=== PATIENT | male | born 1980 | race Caucasian/White ===

== ENCOUNTER 2016-11-25 08:43 | Emergency (ER) | payer OTHER ==
[2016-11-25 10:12] VITALS: BP 118/84
[2016-11-25] MEDS ORDERED: LIDOCAINE HCL 20 ML UDC MM ONE (10:35)
--- NOTE | 2016-11-25 10:42 | ERNOTE ---
ENT HPI Date of Service: 11/25/16 Time Seen by Provider: 11/25/16 10:01 Source: patient Exam Limitations: no limitations - Immun/Allergies/Home Medications Immunizations: IMMUNIZATION HX Immunizations Up to Date Yes History of Influenza Vaccine No Hx Pneumococcal Vaccination No Allergies/Adverse Reactions: Allergies Allergy/AdvReac Type Severity Reaction Status Date / Time No Known Allergies Allergy Verified 11/01/16 09:35 Home Medications: HOME MEDICATIONS Levothyroxine Sodium [Synthroid] 200 mcg PO DAILY 05/19/15 [Last Taken 10/31/16 08:00] Calcium Carb & Citrate/Vit D3 [Citracal + D ER Tablet] 2 each PO BID 10/14/15 [ Last Taken 10/31/16 08:00] HYDROcodone/ACETAMINOPHEN [[place] 5-325] 1 tab PO Q4H PRN #10 tab 10/31/16 [Last Taken 10/28/16 08:00] HYDROcodone/ACETAMINOPHEN [[place] 5-325] 1 - 2 tab PO Q4H PRN #60 tab 11/01/16 [ Last Taken Unknown] Amox Tr/Potassium Clavulanate [Augmentin 875-125 Tablet] 875 mg PO Q12H #20 tab 11/25/16 [Last Taken Unknown] - History of Present Illness Narrative: Pt. comes in with c/o sore throat for 12 hours that was accompanied by fever but denies and sinus congestion, cough, rhinorrhea, NVD, CP, SOB. Pt. states taht swallowing exacerbates the pain but nothing alleviates the pain. Pt. took vicodin prior to arrival and it did alleviate the fever though. Review of Systems - Review of Systems Constitutional: Present: fever, chills. Absent: weakness, fatigue, malaise EYE: Present: no symptoms reported ENT: Present: sore throat. Absent: ear pain, nose pain, nose congestion, nasal drainage Respiratory: Present: no symptoms reported. Absent: shortness of breath, cough , wheezing Cardiology: Present: no symptoms reported. Absent: chest pain, palpitations, edema Gastrointestinal/Abdominal: Present: no symptoms reported. Absent: nausea, vomiting, diarrhea Genitourinary: Present: no symptoms reported Musculoskeletal: Present: no symptoms reported. Absent: back pain, joint pain Skin: Present: no symptoms reported. Absent: rash, change in color Neurological: Present: no symptoms reported. Absent: headache, dizziness/light- headedness, numbness, tingling Endocrine: Present: no symptoms reported Hematologic/Lymphatic: Present: no symptoms reported Psych: Present: no symptoms reported All Other Systems: All systems neg except as marked - Patient's Past Medical History Patient History - Medical: Anxiety, Arthritis, Chronic Pain, GERD, Hypothyroidism, Other Patient History - Cardiac/Respiratory: No pertinent hx Patient History - Cancer: Thyroid, Surgical Treatment Patient History - Surgical Procedures: Other - Family History Father Family History - Medical: No pertinent hx Mother Family History - Medical: , History Unknown - Social History Living Situations: home Alcohol Use: none Drug Use: none Physical Exam - Physical Exam General Appearance: Present: wd/wn, alert, no apparent distress Eye Exam: Normal inspection: bilateral, PERRL: bilateral, EOMI: bilateral Ears, Nose, Throat: Present: pharyngeal erythema, pharyngeal swelling, tonsillar exudate - white Neck: Present: lymphadenopathy (R) - pre and post auricular ant cervical chain and submandibular. Absent: nontender - tender R submandibular post auricular Respiratory: Present: no respiratory distress, normal breath sounds, no accessory muscle use, chest nontender, lungs clear Cardiovascular/Chest: Present: regular rate, rhythm, no murmur, normal peripheral pulses Gastrointestinal/Abdominal: Present: normal bowel sounds, nontender, nondistended, soft, no organomegaly Back Exam: Present: normal inspection, normal range of motion, no CVA tenderness , no vertebral tenderness Extremity Exam: Present: normal inspection, non-tender, no edema, normal range of motion Neurological Exam: Present: alert, oriented, normal mood/affect, no motor/ sensory deficits, 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 Absent: pallor, skin rash ED Progress - Vital Signs Patient's Vital Signs:: I have reviewed the patient's vital signs. Vital Signs: Vital Signs 11/25/16 11/25/16 09:17 10:12 Temperature 35.6 C L Pulse Rate 67 87 Respiratory 22 H 12 Rate Blood Pressure 115/72 118/84 O2 Sat by Pulse 98 98 Oximetry - Progress/Reassessment Chief Complaint: Sore Throat Departure Clinical Impression: Pharyngitis Qualifiers: Pharyngitis/tonsillitis etiology: unspecified etiology Qualified Code(s): J02.9 - Acute pharyngitis, unspecified - Departure Disposition: Home self-care Condition: Good Instructions: Pharyngitis, Eghh-to-Ilrk Additional Instructions: Please follow up with primary provider in 2-3 days. Increase fluid intake. gargle and spit lidocaine as needed for throat pain. Referrals: Mary Arciniega FNP [Primary Care Provider] - Prescriptions: Amox Tr/Potassium Clavulanate [Augmentin 875-125 Tablet] 875 mg PO Q12H #20 tab
== END 2016-11-25 10:51 | disposition home or self-care (01) ==
LOC: ER 08:43
DX: J02.9 Acute pharyngitis, unspecified (principal); Z85.850 Personal history of malignant neoplasm of thyroid

== ENCOUNTER 2017-01-18 07:55 | Emergency (ER) | payer OTHER ==
--- NOTE | 2017-01-18 08:23 | ERNOTE ---
Back Pain ER HPI Date of Service: 01/18/17 Presenting Symptoms: hx chronic back pain Time Seen by Provider: 01/18/17 08:20 Source: patient Exam Limitations: no limitations Immunizations: IMMUNIZATION HX Immunizations Up to Date No History of Influenza Vaccine No Hx Pneumococcal Vaccination No Allergies/Adverse Reactions: Allergies No Known Allergies Allergy (Verified 01/18/17 08:04) Home Medications: HOME MEDICATIONS Levothyroxine Sodium [Synthroid] 200 mcg PO DAILY 05/19/15 [Last Taken 10/31/16 08:00] Calcium Carb & Citrate/Vit D3 [Citracal + D ER Tablet] 2 each PO BID 10/14/15 [ Last Taken 10/31/16 08:00] HYDROcodone/ACETAMINOPHEN [[place] 5-325] 1 - 2 tab PO Q4H PRN #60 tab 11/01/16 [ Last Taken Unknown] Narrative: Presents with c/o exacerbation of his chronic low back pain which he has had for several years. Taking [place] at home, but claims this morning it did not seem to help. Pain described as sharp and located in both lumbar regions of his back. Denies any radiation of pain. Timing: Reports: constant Quality/Severity: Reports: severe, sharpness Location of pain: Reports: lower back, no radiation Activities at Onset: Reports: activity - normal daily routine Recent Injury?: Reports: no Modifying Factors - (Improves): Reports: upright position Modifying Factors - (Worsens): Reports: movement to right, movement to left, movement flexion Associated Symptoms: Denies: fever/chills, sweating, constipation/incontinence, nausea/vomiting, problems urinating, difficulty walking, lightheadedness, numbess/weakness in legs Prior Treament: Reports: recently seen - By ortho and physical therapy. Review of Systems - Review of Systems Constitutional: Present: no symptoms reported EYE: Present: no symptoms reported ENT: Present: no symptoms reported Respiratory: Present: no symptoms reported Cardiology: Present: no symptoms reported Gastrointestinal/Abdominal: Present: no symptoms reported Genitourinary: Present: no symptoms reported Musculoskeletal: Present: See HPI Skin: Present: no symptoms reported Neurological: Present: no symptoms reported Endocrine: Present: no symptoms reported Hematologic/Lymphatic: Present: no symptoms reported Psych: Present: no symptoms reported All Other Systems: All systems neg except as marked - Patient's Past Medical History Patient History - Medical: Chronic Pain Patient History - Cardiac/Respiratory: No pertinent hx Patient History - Cancer: Thyroid, Radiation Therapy Patient History - Surgical Procedures: Other Patient History - Other: None - Family History Father Family History - Medical: No pertinent hx Mother Family History - Medical: , History Unknown - Social History Living Situations: home Abuse History: No History of abuse Psych History: No pertinent hx Smoking Status: Never smoker Alcohol Use: none Drug Use: none - Immunizations Immunizations Up to Date: No Hx Pneumococcal Vaccination: No History of Influenza Vaccine: No Physical Exam - Physical Exam General Appearance: Present: wd/wn, alert, no apparent distress Neck: Present: normal inspection, nontender Respiratory: Present: no respiratory distress, normal breath sounds, no accessory muscle use, chest nontender, lungs clear Cardiovascular/Chest: Present: regular rate, rhythm, no murmur Back Exam: Present: no CVA tenderness, decreased range of motion - due to pain, other - TTP of paraspinal lumbar regions. . Absent: muscle spasm Extremity Exam: Present: normal inspection, normal range of motion Neurological Exam: Present: alert, oriented, normal mood/affect, no motor/ sensory deficits Skin Exam: Present: normal color, warm/dry ED Progress - Vital Signs Patient's Vital Signs:: I have reviewed the patient's vital signs. Vital Signs: Vital Signs 01/18/17 07:59 Temperature 36.8 C Pulse Rate 70 Respiratory 16 Rate Blood Pressure 147/92 O2 Sat by Pulse 97 Oximetry - Progress/Reassessment Chief Complaint: Back Pain Departure Clinical Impression: Chronic low back pain without sciatica Qualifiers: Back pain laterality: bilateral Qualified Code(s): M54.5 - Low back pain - Departure Disposition: Home self-care Condition: Good Instructions: Chronic Back Pain Referrals: Mary Arciniega FNP [Primary Care Provider] -
[2017-01-18] MEDS ORDERED: KETOROLAC TROMETHAMINE 60 MG/2 ML VIAL IM ONE ×2 (08:27→08:31)
[2017-01-18] MEDS ORDERED: ORPHENADRINE CITRATE 30 MG/ML VIAL IM ONE (08:27)
[2017-01-18] MEDS ORDERED: oxyCODONE HCL/ACETAMINOPHEN 1 TAB TABLET PO ONE (08:27)
[2017-01-18] MEDS ORDERED: oxyCODONE HCL/ACETAMINOPHEN 1 TAB TABLET ONE (08:31)
[2017-01-18] MEDS ORDERED: ORPHENADRINE CITRATE 30 MG/ML VIAL ONE (08:31)
--- OUTSIDE RECORDS SUMMARY | 2017-01-18 08:38 | XMS REPORT | Continuity of Care Document ---
:1980 Author Organization ([facility]) Address [address] [place] [address] Phone [phone] Care Team Providers Name Role Phone Maday Quintana Primary Care Provider [phone] Source Comments This disclosure is being made pursuant to the Care Everywhere program, applicable federal and state laws, and may not contain all informaitonavailable regarding this patient. ([facility]) Active Allergies and Adverse Reactions No Known Allergies Current Medications Prescription Sig. Disp. Refills Start Date End Date Status aspirin 325 mg Take 1 Tab by mouth 30 Tab 3 07/27/2010 Active tablet daily. Indications: superficial venous thrombophlebitis baclofen 10 mg Take 1 Tab by mouth 3 180 Tab 2 07/17/2011 Active tablet times daily as needed. Indications: Muscle Spasticity of Spinal Origin ibuprofen 800 mg Take 1 Tab by mouth 180 Tab 6 07/17/2011 Active tablet every 8 hours as needed. Indications: Pain levothyroxine 100 Take 1 Tab by mouth 60 Tab 6 07/24/2011 Active mcg tablet daily. To be taken with the 112 mcg to equal 212 mcg/day Indications: Hypothyroidism levothyroxine 112 Take 1 Tab by mouth 60 Tab 3 07/24/2011 Active mcg tablet daily. To be used with the 100 mcg/day to equal 212 mcg/day Indications: Hypothyroidism, Thyroid Carcinoma calcium carbonate Take 1 Tab by mouth as 05/13/2009 Active 200 mg calcium (500 needed. 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 Anxiety 05/12/2009 Obesity 05/12/2009 Social History Tobacco Use Types Packs/Day Years Used Date Former Smoker Cigarettes 1.5 12 Quit: 05/04/2009 Smokeless Tobacco: Never Used Alcohol Use Drinks/Week oz/Week Comments Yes 15 drinks per month Last Filed Vital Signs Vital Sign Reading Time Taken Blood Pressure 127/69 08/13/2011 10:25 AM CDT Pulse 55 08/13/2011 10:25 AM CDT Temperature 35.8 C (96.4 F) 08/13/2011 10:25 AM CDT Respiratory Rate 16 03/27/2010 8:11 AM CDT Height 1.88 m (6' 2.02") 08/13/2011 10:25 AM CDT Weight 166.2 kg (366 lb 6.5 oz) 08/13/2011 10:25 AM CDT Body Mass Index 47.02 08/13/2011 10:25 AM CDT Oxygen Saturation 100% 05/13/2009 8:00 AM CDT Plan of Care Health Maintenance Due Date Last Done Comments Hepatitis B Vaccine (1 of 3 - Primary 1980 Series) Tdap Vaccine 1990 MMR Vaccine 1997 Td Vaccine 1997 Pneumococcal Vaccine (1 of 3 - PCV13) 1998 Influenza Vaccine: Seasonal (#1) 06/04/2016 Lipid Disorder Screening 07/17/2016 07/17/2011, 03/27/2010 Results from Last 3 Months Not on file
[2017-01-18 09:14] VITALS: BP 127/89
== END 2017-01-18 09:47 | disposition home or self-care (01) ==
LOC: ER 07:55
DX: M54.5 Low back pain (principal); G89.29 Other chronic pain; Z85.850 Personal history of malignant neoplasm of thyroid; Z92.3 Personal history of irradiation

== ENCOUNTER 2017-06-06 08:53 | Emergency (ER) | payer OTHER ==
[2017-06-06 09:00] VITALS: BP 181/93
--- NOTE | 2017-06-06 09:14 | ERNOTE ---
Back Pain ER HPI Presenting Symptoms: hx chronic back pain Time Seen by Provider: 06/06/17 08:56 Source: patient Exam Limitations: no limitations Immunizations: IMMUNIZATION HX Immunizations Up to Date No History of Influenza Vaccine No Hx Pneumococcal Vaccination No Allergies/Adverse Reactions: Allergies No Known Allergies Allergy (Verified 06/06/17 08:59) Home Medications: HOME MEDICATIONS Levothyroxine Sodium [Synthroid] 200 mcg PO DAILY 05/19/15 [Last Taken 10/31/16 08:00] Cyclobenzaprine HCl [Flexeril] 10 mg PO TID PRN #30 tab 06/06/17 [Last Taken Unknown] HYDROcodone/ACETAMINOPHEN [[place] 5-325] 1 each PO Q4H PRN #10 tablet 06/06/17 [ Last Taken Unknown] Narrative: Patient has had low back pain for years. He most recently saw Dr Ro and received an injection in his back in 03/2017, which is wearing off and he has had more pain again, denies any new injuries. The pain has been increasing again over the last two weeks radiating down his left leg posteriorly to his foot and to his anterior thigh on the right, left leg is numb (unchanged), no weakness, no loss of bladder and bowel control Timing: Reports: constant, getting worse Quality/Severity: Reports: severe Location of pain: Reports: lower back, radiating to rt thigh/leg, radiating to lf thigh/leg Activities at Onset: Reports: none Recent Injury?: Reports: no Modifying Factors - (Worsens): Reports: movement flexion Associated Symptoms: Denies: fever/chills, sweating, constipation/incontinence, nausea/vomiting, problems urinating, difficulty walking Prior Treament: Reports: similar symptoms before. Denies: recently seen Review of Systems - Review of Systems Constitutional: Absent: recent illness, fever ENT: Absent: nose congestion, sore throat Respiratory: Absent: shortness of breath Gastrointestinal/Abdominal: Absent: nausea, abdominal pain Genitourinary: Present: no symptoms reported Musculoskeletal: Present: See HPI Neurological: Present: See HPI - Patient's Past Medical History Patient History - Medical: Chronic Pain Patient History - Cardiac/Respiratory: No pertinent hx Patient History - Cancer: Thyroid, Radiation Therapy Patient History - Surgical Procedures: Cancer Surgery, Other Patient History - Other: None - Family History Father Family History - Medical: No pertinent hx Mother Family History - Medical: , History Unknown - Social History Living Situations: home Abuse History: No History of abuse Psych History: No pertinent hx Alcohol Use: none Drug Use: none - Immunizations Immunizations Up to Date: No Hx Pneumococcal Vaccination: No History of Influenza Vaccine: No Physical Exam - Physical Exam General Appearance: Present: wd/wn, alert, mild distress, obese Respiratory: Present: no respiratory distress, normal breath sounds, no accessory muscle use, lungs clear Cardiovascular/Chest: Present: regular rate, rhythm, no murmur Back Exam: Present: normal inspection, vertebral tenderness - lumbar, muscle spasm Neurological Exam: Present: alert, oriented, normal mood/affect, no motor/ sensory deficits - limited assessment due to pain Skin Exam: Present: normal color, warm/dry ED Progress - Vital Signs Patient's Vital Signs:: I have reviewed the patient's vital signs. Vital Signs: Vital Signs 06/06/17 08:56 Temperature 36.8 C Pulse Rate 75 Respiratory 12 Rate Blood Pressure 181/93 O2 Sat by Pulse 96 Oximetry - Progress/Reassessment Chief Complaint: Back Pain Progress Note-Subjective: 06/06/17 09:43 pain better after toradol, discussed plan with patient, will be referred to pain clinic Departure Clinical Impression: Chronic low back pain with bilateral sciatica Qualifiers: Back pain laterality: bilateral Qualified Code(s): M54.42 - Lumbago with sciatica, left side; M54.41 - Lumbago with sciatica, right side; G89.29 - Other chronic pain - Departure Disposition: Home self-care Condition: Good Instructions: Sciatica, [id number] Additional Instructions: Pain Clinic [facility] will review your records and call you with an appointment date and time. Referrals: Mary Arciniega FNP [Primary Care Provider] - Prescriptions: Cyclobenzaprine HCl [Flexeril] 10 mg PO TID PRN #30 tab PRN Reason: MUSCLE SPASMS HYDROcodone/ACETAMINOPHEN [[place] 5-325] 1 each PO Q4H PRN #10 tablet PRN Reason: Pain
[2017-06-06] MEDS ORDERED: KETOROLAC TROMETHAMINE 60 MG/2 ML VIAL IM ONE (09:22)
[2017-06-06] MEDS: KETOROLAC TROMETHAMINE 60 MG/2 ML VIAL IM ONE (09:24)
== END 2017-06-06 09:54 | disposition home or self-care (01) ==
LOC: ER 08:53
DX: M54.42 Lumbago with sciatica, left side (principal); M54.41 Lumbago with sciatica, right side; G89.29 Other chronic pain

== ENCOUNTER 2017-06-24 06:46 | Emergency (ER) | payer OTHER ==
[2017-06-24] MEDS ORDERED: KETOROLAC TROMETHAMINE 30 MG/ML VIAL IM ONE (07:51)
[2017-06-24] MEDS ORDERED: MORPHINE SULFATE 10 MG/ML SYRG SC ONE (07:51)
[2017-06-24] MEDS ORDERED: MORPHINE SULFATE 10 MG/ML SYRG ONE (07:55)
[2017-06-24] MEDS ORDERED: KETOROLAC TROMETHAMINE 30 MG/ML VIAL ONE (07:55)
--- NOTE | 2017-06-24 08:02 | ERNOTE ---
Back Pain ER HPI Date of Service: 06/24/17 Time Seen by Provider: 06/24/17 07:16 Immunizations: IMMUNIZATION HX Immunizations Up to Date Yes History of Influenza Vaccine No Hx Pneumococcal Vaccination No Allergies/Adverse Reactions: Allergies No Known Allergies Allergy (Verified 06/24/17 07:19) Home Medications: HOME MEDICATIONS Levothyroxine Sodium [Synthroid] 200 mcg PO DAILY 05/19/15 [Last Taken 06/24/17] Cyclobenzaprine HCl [Flexeril] 10 mg PO TID PRN #30 tab 06/06/17 [Last Taken ] HYDROcodone/ACETAMINOPHEN [[place] 5-325] 1 - 2 tab PO Q6H PRN #10 tab 06/24/17 [ Last Taken Unknown] Narrative: This is a 37-year-old gentleman who comes to the emergency department with 2 discrete problems. First, the patient says he has "a history of thyroid cancer and swelling in my salivary glands". The patient was scheduled for a sialogram today at 745 diagnostic radiology at the [facility]. The patient says that his ride did not arrive. The patient says that he got frustrated because his ride and didn't arrive so he decided to walk down here. He walked was going to walk here from home. I asked the patient what he was hoping we could do for him when he came down here he said maybe you could call and get it rescheduled. I asked the patient if he had a phone of his own and he said yes but at that moment he was not getting any receptionist doctor's office. It should be noted that the patient had enough foresight to put his pain medicine in his pocket because he thought he might get back pain while walking her The patient also is complaining of severe lower back pain. The patient has a long history of chronic back pain for which she has received narcotic prescriptions from multiple prescribers. His most recent set of prescriptions for Lortab which were prescribed by Dr. Chirinos here in the emergency department 2 weeks ago. He says he went through all of these pain pills. The patient also has a prescription bottle in his back pocket which has helped Percocet from a prescription written 2015. This has at least one tablet and it. The patient denies any loss of bowel or bladder function. He says this is the same pain that he always gets. When asked the patient what he is doing about his pain, he says "I don't know" the patient says that he was scheduled for chronic pain management program but when he got the paperwork he refused to fill it out. He says "all that paperwork makes me feel like I'm checking into drug rehabilitation." I explained to the patient that there is a great deal of opiate abuse in the [facility] [place]. He says "I know that people use it to get high, but then people like me to get the medicine they need. I have already retained a table games supervisor and I'm copying things from their Facebook page. If I had my tape recorder I would tape record this and put it on their Facebook page. I asked the patient what he typically does for her back pain when he comes here. He says when he comes out here to give him a shot of medicine. He says "I know you can't give me pills her prescription" she denies any recent trauma. He denies any new numbness tingling or weakness. All the symptoms he has are similar symptoms to that which she has had in the past Timing: Reports: other - the pain has been there 24 hours a day 7 days a week for as long as he can remember what when he walked here this morning he says it started to get worse. He did have enough foresight to put an old Percocet tablet from a prior prescription from 2016 into his back pocket. This is despite the fact that he says he has gone through all of his pain medicine from a prescription just 2 weeks ago. Review of Systems - Review of Systems Constitutional: Present: no symptoms reported EYE: Present: no symptoms reported ENT: Present: no symptoms reported Respiratory: Present: no symptoms reported Cardiology: Present: no symptoms reported Gastrointestinal/Abdominal: Present: no symptoms reported Genitourinary: Present: no symptoms reported Musculoskeletal: Present: back pain, joint pain, other - back pain from the neck all the way down to his lumbar spine. Joint pain all the joints in his back as well as knees Neurological: Present: other - no new numbness or tingling. No muscular weakness which is new Endocrine: Present: no symptoms reported Hematologic/Lymphatic: Present: no symptoms reported Psych: Present: no symptoms reported All Other Systems: All systems neg except as marked - Patient's Past Medical History Patient History - Medical: Chronic Pain Patient History - Cardiac/Respiratory: No pertinent hx Patient History - Cancer: Thyroid, Radiation Therapy Patient History - Surgical Procedures: Cancer Surgery, Other Patient History - Other: None - Family History Father Family History - Medical: No pertinent hx Mother Family History - Medical: , History Unknown - Social History Living Situations: home Abuse History: No History of abuse Psych History: No pertinent hx Smoking Status: Former smoker Have you smoked in the past 12 months: No Smoking Stop Date: 06/24/09 Patient requests Smoking Cessation Consult: No Initiate information on Smoking Cessation: No Alcohol Use: none Drug Use: none - Immunizations Immunizations Up to Date: Yes Hx Pneumococcal Vaccination: No History of Influenza Vaccine: No Physical Exam - Physical Exam General Appearance: Present: wd/wn, alert, no apparent distress Head Exam: Present: normal inspection, no evidence of injury Eye Exam: Normal inspection: bilateral, PERRL: bilateral, EOMI: bilateral Ears, Nose, Throat: Present: normal ENT inspection, normal pharynx Neck: Present: normal inspection, nontender Respiratory: Present: no respiratory distress, lungs clear Cardiovascular/Chest: Present: regular rate, rhythm Gastrointestinal/Abdominal: Present: soft Rectal Exam: Present: deferred Back Exam: Present: other Extremity Exam: Present: non-tender, no edema Neurological Exam: Present: alert, oriented, normal mood/affect, no motor/ sensory deficits Skin Exam: Present: normal color, warm/dry Lymphatic Exam: Present: no adenopathy, other - the patient's lower back exam demonstrates an 8 exaggerated pain response. He seems to flinch in anticipation of even gentle discomfort discomfort from very lightest pressure. ED Progress - Vital Signs Vital Signs: Vital Signs 06/24/17 07:12 Temperature 36.5 C Pulse Rate 66 Respiratory 20 Rate Blood Pressure 153/87 O2 Sat by Pulse 99 Oximetry - Progress/Reassessment Chief Complaint: Back Pain Progress:: Unchanged Progress Note-Subjective: 06/24/17 07:58 I have given the patient is shot of anti-inflammatory as well as low-dose narcotic. The patient said that he does not expect me to write a prescription for further doses of narcotic, but I'm willing to do this for up to 10 tablets. He is made aware that he needs to follow-up with the pain management clinic. 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 Departure Clinical Impression: Lumbago, Chronic low back pain without sciatica - Departure Disposition: Home self-care Condition: Stable Instructions: Low Back Sprain With [facility] Referrals: Mary Arciniega FNP [Primary Care Provider] - Prescriptions: HYDROcodone/ACETAMINOPHEN [[place] 5-325] 1 - 2 tab PO Q6H PRN #10 tab PRN Reason: Pain
[2017-06-24 08:21] VITALS: BP 152/96
== END 2017-06-24 08:26 | disposition home or self-care (01) ==
LOC: ER 06:46
DX: M54.5 Low back pain (principal); G89.29 Other chronic pain; Z85.850 Personal history of malignant neoplasm of thyroid